=== PATIENT | male | born 2000 | race American Indian/Alaskan Native ===

== ENCOUNTER 2021-11-17 20:58 | Emergency (ER) | payer MEDICAID ==
[2021-11-18 04:40] LABS: Color,Urine Straw (Yellow)
[2021-11-18 04:42] LABS: Bacteria,Urine 1+ /HPF (Negative); Mucus,Urine 3+ /HPF
[2021-11-18 04:44] LABS: Ictotest,Urine Negative (Negative)
[2021-11-18] MEDS ORDERED: LIDOCAINE-MPF (1%) 10 MG/1 ML VIAL 5 ML INFILTRATI ONE (05:39)
--- NOTE | 2021-11-18 05:55 | Emergency Department Report ---
ED Male HPI - General Chief complaint: Urogenital-Male Stated complaint: LEFT LEG SWELLING/SYMPTOMS OF UTI Time Seen by Provider: 11/18/21 03:07 Source: patient Mode of arrival: Wheelchair Limitations: No Limitations - History of Present Illness Initial comments: 18-year-old male with vomiting [place] presents emerged from complaining of the development of what felt like another urinary tract infection having increased urinary frequency decreased urinary production strongly on older occasional pelvic cramping suspect a UTI. Reports no fever, chills, sweats. No hemoptysis no hematemesis no hematuria no no nausea vomiting Severity: mild, moderate Quality: aching, burning Improves with: none Worsens with: none denies other symptoms - Related Data Previous Rx's Medication Instructions Recorded Last Taken Type Nitrofurantoin [place]/M-Cryst 100 mg PO Q12HR #20 capsule 11/18/21 Unknown Rx [Macrobid CAP] Allergies Allergy/AdvReac Type Severity Reaction Status Date / Time latex Allergy Hives Verified 11/17/21 21:40 ED Review of Systems ROS: Stated complaint: LEFT LEG SWELLING/SYMPTOMS OF UTI Other details as noted in HPI Comment: All other systems reviewed and negative ED Past Medical Hx - Past Medical History Previous Medical History?: Yes Additional medical history: spinal bifada, hydrocephalus, urogenic bladder - Surgical History Past Surgical History?: Yes Additional Surgical History: EMBROIDERY FINISHER shunt, foot surgery, back surgery, - Medications Home Medications: Home Medications Medication Instructions Recorded Confirmed Last Taken Type Nitrofurantoin [place]/M-Cryst 100 mg PO Q12HR #20 capsule 11/18/21 Unknown Rx [Macrobid CAP] ED Physical Exam - General Limitations: No Limitations General appearance: alert, in no apparent distress - Head Head exam: Present: atraumatic, normocephalic - Eye Eye exam: Present: normal appearance, PERRL, EOMI Pupils: Present: normal accommodation - ENT ENT exam: Present: normal exam, normal orophraynx, mucous membranes moist, TM's normal bilaterally - Neck Neck exam: Present: normal inspection, full ROM - Respiratory Respiratory exam: Present: normal lung sounds bilaterally. Absent: respiratory distress - Cardiovascular Cardiovascular Exam: Present: regular rate, normal rhythm. Absent: systolic murmur, diastolic murmur, rubs, gallop - GI/Abdominal GI/Abdominal exam: Present: soft, normal bowel sounds - Rectal Rectal exam: Present: deferred - Extremities Exam Extremities exam: Present: normal inspection, normal capillary refill - Back Exam Back exam: Present: normal inspection. Absent: CVA tenderness (R), CVA te nderness (L) - Neurological Exam Neurological exam: Present: alert, oriented X3, CN II-XII intact - Psychiatric Psychiatric exam: Present: normal affect, normal mood. Absent: homicidal ideation - Skin Skin exam: Present: warm, dry, intact, normal color. Absent: rash, cyanosis, diaphoretic ED Course Vital Signs 11/17/21 21:35 Temperature 98.4 F Pulse Rate 83 Respiratory 15 Rate Blood Pressure 123/71 [Left] O2 Sat by Pulse 98 Oximetry Critical care attestation.: If time is entered above; I have spent that time in minutes in the direct care of this critically ill patient, excluding procedure time. ED Disposition Clinical Impression: UTI (urinary tract infection) Disposition: HOME / SELF CARE / HOMELESS Is pt being admited?: No Does the pt Need Aspirin: No Condition: Stable Instructions: Urinary Tract Infection, Adult Prescriptions: Nitrofurantoin [place]/M-Cryst [Macrobid CAP] 100 mg PO Q12HR #20 capsule Referrals: [facility] [Provider Group] - 3-5 Days
[2021-11-18] MEDS ORDERED: HYDROcodone/ACETAMINOPHEN 5-325 MG TAB PO ONE (07:57)
--- NOTE | 2021-11-18 08:05 | Emergency Department Report ---
Blank Doc - Documentation Documentation: 21-year-old male reported to the nurse that he he has having left knee and left ankle pain and would like to be evaluated for his left knee left ankle pain. This provider went in to address patient's concern. Patient reports no known injury to the left knee left ankle. Patient reports no direct injury no falling recently. Patient does have a complex medical history. spinal bifada, hydrocephalus, urogenic bladder and sx [employer] shunt, foot surgery, back surgery. On physical exam patient has no dislocation noted. No open wounds noted. Patient has no enlargement of left knee with bone structure. With slight swelling noted on the anterior side of left knee compared to right knee. No clinical signs of infection noted. Left foot with swelling noted. No clinical signs of infection noted no erythema no redness. No open wounds. No streaking. Tenderness is noted. Patient informed due to that he he is having fluid buildup in left knee and right foot. Informed to use compression stockings to decrease fluid accumulation. Patient given Ramez wrap for left knee and left ankle/foot as well as pain medication here in the ER for pain control. No imaging is needed as no concerns for acute fractures. No imaging such as ultrasound needed as well as no concern for DVT as all pain is located on the anterior aspect of the left knee and anterior aspect of the right foot. No swelling of calf noted no posterior knee pain noted. No shortness of breath reported. Patient agrees with plan of care and verbalized understanding patient encouraged to follow his primary care provider for further management. Patient informed symptoms are to get worse to report back to the ER.
[2021-11-18 08:31] VITALS: BP 120/70
== END 2021-11-18 08:30 | disposition home or self-care (01) ==
LOC: ED 20:58
DX: N39.0 Urinary tract infection, site not specified (principal); R22.42 Localized swelling, mass and lump, left lower limb; Z98.890 Other specified postprocedural states; Z91.040 Latex allergy status; Z79.899 Other long term (current) drug therapy
CPT/HCPCS: 81001; 87086; 96372; 99283; J0696; J3490